=== PATIENT | female | born 2000 | race Caucasian/White ===

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

== ENCOUNTER → 2023-10-26 | Outpatient (CLI) | payer MEDICAID, SELFPAY ==
[2023-10-26 16:12] LABS: Rheumatoid Factor < 10.0 IU/mL (<15)
[2023-10-28 13:08] LABS: CCP IgG Antibodies 34 units (0-19)
[2023-10-30 10:41] LABS: ANTINUCLEAR ANTIBODIES DIRECT Negative (Negative); Anti-Jo <0.2 AI (0.0-0.9); SJOGREN'S Anti-SS-A test < 0.2 AI (0.0-0.9); SJOGREN'S Anti-SS-B test < 0.2 AI (0.0-0.9); Smith Ab <0.2 AI (0.0-0.9)
== END | disposition home or self-care (01) ==
LOC: MFPLAB 12:03
PROVIDERS: PCP Family Medicine; Visit Provider Family Medicine
DX: Z87.39 Personal history of other diseases of the musculoskeletal system and connective tissue (principal)
CPT/HCPCS: 36415; 86038; 86200; 86235; 86431

== ENCOUNTER 2024-02-07 11:12 | Inpatient (IN) | payer MEDICAID, SELFPAY ==
[2024-02-07] VITALS (38 sets, daily range): BP systolic 114–134; BP diastolic 69–85; PULSE 58–89; RESP 16; TEMP 35.7–36.7; O2SAT 98–100; BMI 31.6
[2024-02-07] MEDS: Lactated Ringers 1,000 ML 50 ML IV (11:15)
[2024-02-07] MEDS: Penicillin G Pot 5,000,000 UNITS in 0.9% Normal Saline (100mL MB+) 100 ML 150 UNITS IV (11:30)
[2024-02-07 11:33] LABS: Absolute Lymphocyte Count 2.08 X10^3/uL (0.83-4.51); Absolute Neutrophil Count 13.6 X10^3/uL (2.0-7.7); Basophil# 0.09 X10^3/uL; Basophil% 0.5 % (0-1); Eosinophil# 0.07 X10^3/uL; Eosinophils% 0.4 % (0-5); Hematocrit 41.8 % (37-47); Hemoglobin 14.4 g/dL (12.0-15.0); Lymphocyte # 2.08 X10^3/ul (0.83-4.51); Lymphocyte % 12.4 % (19-41); Mean Corp Hgb Conc 34.4 g/dL (32-36); Mean Corpuscular Hgb 31.4 pg (27.0-32.0); Mean Corpuscular Volume 91.1 fL (81-99); Monocyte# 0.69 X10^3/uL; Monocyte% 4.1 % (0-10); NRBC Flagged by Analyzer 0 % (0-5); Neutrophil # 13.62 X10^3/uL (2.7-7.7); Neutrophil % 80.9 % (47-70); Platelet Count 221 K/mm3 (150-450); RBC Distribution Width SD 44.7 fl (35.1-43.9); Red Blood Count 4.59 M/mm3 (4.2-5.4); White Blood Count 16.8 K/mm3 (4.4-11.0)
[2024-02-07 12:12] LABS: Syphilis Antibodies Non-reactive
[2024-02-07] MEDS: Oxytocin 10 UNITS/ML Vial IM (13:02)
[2024-02-07] MEDS: Lidocaine 1% (20 ml mdv) 20 ML Vial INFILT (13:05)
[2024-02-07] MEDS: Oxytocin 15 Units/NS 250ml 15 UNITS/250 ML IV.SOLN 83 UNITS IV (13:05)
--- NOTE | 2024-02-07 13:17 | HP.PCM.OB_ITS ---
HPI - General General Date of Admission: 02/07/24 Date of Service: 02/07/24 Chief Complaint: contractions HPI Narrative ROSE MARY DALTON, is a 24 F who presents c/o contractions increasing in intensity since about 7 am. complicated to date by +GBS statbus, h/o cannabis use during the . Maternal Data Information Final JUAN: 02/15/24 Gestational age: 38 6/7 [facility] Medical History (Updated 02/07/24 @ 13:[address] Isabel Moran MD) Arthralgia Tetrahydrocannabinol (THC) use disorder, mild, abuse Family history of malignant hyperthermia Home Medications ?Medication ?Instructions ?Recorded ?Last Taken ?Type aspirin 81 mg tablet,delayed 81 mg PO DAILY 02/07/24 02/06/24 22:00 History release vit no.95-ferrous 1 tab PO DAILY 02/07/24 02/06/24 23:11 History fumarate 28 mg-folic acid 800 mcg tablet () Allergy/AdvReac Type Severity Reaction Status Date / Time No Known Allergies Allergy Verified 02/07/24 11:09 Social History Smoking Status: Former smoker History Elective abortions Hx Para 0 Spontaneous abortions Hx # Term Pregnancies Ectopic pregnancies Hx # Pregnancies Multiple births # of living children ROS Constitutional Constitutional: Denies fatigue, fever(s) or malaise Eyes Eyes: Denies change in vision ENT HEENT: Denies dizziness or headache(s) Cardiovascular Cardiovascular: Denies chest pain, dyspnea or lightheadedness Respiratory/Chest Respiratory/Chest: Denies cough or dyspnea Gastrointestinal Gastrointestinal: Denies change in bowel habits Genitourinary Genitourinary: Denies burning urination or genital lesions Integumentary Integumentary: Denies rash Neurologic Neurologic: Denies confusion, dizziness, headache(s), numbness or weakness Vital Signs Vital Signs Vital Signs: 02/07/24 11:35 02/07/24 11:35 02/07/24 11:35 Temperature Temperature Source Temporal Pulse Rate 86 Respiratory Rate Blood Pressure 120/70 BP Systolic 120 BP Diastolic 70 Pulse Ox 02/07/24 11:35 02/07/24 11:35 02/07/24 11:35 Temperature 96.3 F L Temperature Source Pulse Rate Respiratory Rate 16 Blood Pressure BP Systolic BP Diastolic Pulse Ox 99 Weight Weight: 83.461 kg Body Mass Index (BMI) 31.6 Physical Exam Const alert and no apparent distress General Appearance: cooperative HEENT normocephalic Resp normal respiratory effort Cardio regular rate GI soft to palpation GI Narrative: gravid, nontender, appropriate for gestational age Extremity no calf tenderness General Extremity: edema Skin no wounds Rashes: No rashes noted Psych activity/motor behavior normal Labs Labs Labs: Blood Type O POSITIVE Antibody Screen NEGATIVE Hct 41.8 % (37-47) Hgb 14.4 g/dL (12.0-15.0) Syphilis Total Ab Non-reactive Assessment & Plan (1) 38 weeks gestation of : PLAN: Spontaneous labor. Expectant management for vaginal delivery. Estimated weight is less than 4500 g. Group B strep prophylaxis initiated. (2) High-risk in third trimester: (3) Spontaneous onset of labor:
--- NOTE | 2024-02-07 13:23 | OB.VAGDELI_ITS ---
Assessment & Plan (1) (spontaneous vaginal delivery): (2) Single live : Maternal Data Information Final JUAN: 02/15/24 Gestational age: 38 6/7 Vaginal Delivery Maternal Presentation Maternal Presentation: Active Labor Vaginal Delivery Information Procedure Performed: Spontaneous Vaginal Delivery Surgeon/Practitioner: Isabel Moran Date of Procedure: 02/07/24 Pre-Procedure Diagnosis: labor Post-Procedure Diagnosis: same Type of anesthesia: Local with 1% Lidocaine (15 cc) Special Medications: none Estimated Blood Loss: 300 Time of Delivery: 13:01 Findings Description of procedure: A vigorous female infant was delivered CHRISTEN over a first-degree perineal laceration. The remainder the was delivered with maternal pushing and gentle traction only in less than 15 seconds. The Pitocin infusion was initiated for active management of the third stage. The cord was clamped and cut after cord pulsations ceased. The infant was attended to by the waiting nursing staff. The placenta was delivered spontaneously and intact. The cervix and vagina were intact. The first-degree vaginal laceration was repaired with 3-0 Vicryl in a running standard fashion and was hemostatic. Sponge and needle counts were correct. A vaginal sweep was completed by me. Presentation: CHRISTEN Amniotic Membrane Rupture Type: Spontaneous Amniotic Fluid Description: Clear Placenta Disposition: [facility] Specimen collected: No Cord Vessel Description: 3 Vessels Cord Entanglement: None A Gender: Female (Yris) (1 minute): 9 (5 minute): 9 Delayed Cord Clamping: Yes State [employer] Director breaker hand: No Post Vaginal Deli Medications given after delivery: IV Pitocin and IM Pitocin Episiotomy Description: None Laceration: 1st degree Complication Complications: No
[2024-02-07] MEDS: Acetaminophen 500 MG Tablet 1000 MG PO (22:07)
[2024-02-08] VITALS: BP 131/85; PULSE 74; RESP 16; TEMP 36.3; O2SAT 98
[2024-02-08 05:35] VITALS: BP 121/79; PULSE 80; RESP 16; TEMP 36.1; O2SAT 97
[2024-02-08 08:47] VITALS: BP 112/96; PULSE 74; RESP 16; TEMP 36.7
--- NOTE | 2024-02-08 08:56 | PCM.PN.BLA ---
Progress Note Pain well controlled, average lochia, no n/V. Urinating without difficulty Physical Exam Const alert and no apparent distress Narrative: Fundus firm, below umbilicus. Assessment & Plan Assessment/Plan (1) (spontaneous vaginal delivery): PLAN: Plan PPD#1 doing well d/c home tomorrow if ok w/ peds, did not get 4 hrs GBS prophylaxis
--- NOTE | 2024-02-08 10:42 | CASEMGMT ---
Social Work Assessment Labor and Delivery Unit Patient Address: [facility] [address] [place] [address] Phone number: [phone] Date of Referral: 02/07/24 Time of Referral:? 1126 Referred By: Digna Cr Date of Intervention: ??02/08/24 Time of Intervention:? 50 Reason for Referral:? substance abuse Sw completed chart review and acknowledges social work consult due to maternal substance use during . Sw presented to bedside and introduced self to mother of baby, NIKI Lozano. Sw observes that father of baby, ADINA Torres is also present but is asleep on couch. Sw completed assessment with WOODY. History obtained from: medical records and mother of baby (WOODY)??? Household composition: WOODY states that the address listed in chart is her mother's home, but when she leaves from hospital she will be staying with FOB at [facility] [address], [facility]. WOODY states that at that address it is just herself and FOB that live there, along with baby when ready for discharge. Patient's parent/guardian status:? ?WOODY states that she and FOB [facility]. They were together from 2014- 2019, and then were for 1.5 years. Then got back together in 2020 and have been together ever since. WOODY denies domestic violence or intimate partner violence. This is first baby for both parents. Medical History: ?WOODY is 24 year old female who is 1, para 0- now 1 following labor and delivery of . WOODY received routine care during with [facility]. WOODY presented to hospital in active labor and delivered baby via vaginal delivery at 38 weeks gestation on 02/07/24. Baby girl, named Radu, was born weighing 7lb 4oz with apgars of 9 and 9 at one and five minutes of life,respectfully. WOODY is working on breast feeding and states that baby will be followed by Dr. Worthy. Educational Status:? Both parents graduated from high school. No concerns with reading, learning or comprehension. Financial Status: NAHED is employed outside the home at [employer]. WOODY was previously working at [employer], but is currently employed. Infant Supplies: WOODY states that she has obtained all necessary baby supplies, including: car seat, safe sleep space, clothes, diapers and wipes. Childcare/Caregiver(s):? MOB will be the primary caregiver to baby Transportation:?? Both parents have their drivers license and reliable means of transportation. No barriers. Programs/Agencies Involved: ???MOB states that she is connected to insurance through [employer]. MOB denies having WIC or SNAP. MOB states that she is financially taken care of and financially prepared to care for baby. Children Services/Legal Issues:??? No history of children services involvement. Sw explained need to make referral to [facility] due to maternal substance use of THC during . MOB expressed understanding. - Sw called [facility] and spoke to hotline screener: Behavioral Health Issues: ??Mental Health History:??MOB states that NAHED does not have any mental health diagnoses or history. MOB states that during she noticed that she was struggling with her mental health, primarily with feeling anger and saying things too quickly without thinking about what she is saying. MOB reports that she met with her primary care doctor, Dr. Whelan to discuss her mental health concerns. MOB states that she thought that she was Bipolar, however Dr. Whelan states that she does not meet criteria for Bipolar disorder. MOB states that Dr. Whelan referred her for outpatient psychiatric services at [place]. MOB states that she was waiting until she was not any more. ? Substance Use History:?MOB states that she has smoked marijuana daily prior to being . MOB states that during she would smoke a couple of times a week, with the last time being a couple of weeks ago. ? Family History:?MOB states that NAHED also smokes marijuana. MOB states that NAHED parents would also smoke marijuana, but both are passed at this time. Bora explained to MOB the importance of being mindful of genetic disposition and to use healthy coping skills instead of seeking comfort from drugs or alcohol. MOB expressed understanding. ? Drug Screens: Maternal drug screen not seen in chart review. [place] urine screen at time of delivery was positive for THC. Family/Social Stressors:? MOB denies any issues, concerns or stressors. Support Systems: MOB identifies that NAHED, her mom and paternal aunt are her biggest supports at this time. MOB states that if she were to struggle with her mental health during this period FOB would be able to recognize that. Depression/Shaken Baby/Safe Sleeping: Sw educated MOB on signs and symptoms of baby blues and mood and anxiety disorders. Sw explained importance of using healthy coping skills opposed to letting herself get angry. Sw emphasized red flags for MOB to be mindful of during this period. Sw encouraged MOB to call and get connected to mental health services and supports at [place]. MOB states that she has intentions of doing so. Sw educated MOB on shaken baby prevention and ABCs of safe sleep. MOB expressed understanding. ASSESSMENT:? MOB and baby admitted following labor and delivery. MOB first time mom and reports to having all necessary baby items and natural supports in place. MOB with unconfirmed mental health diagnoses. MOB self reports having problems with anger and increased rage during . MOB planning on getting connected to a psychiatrist now that she is no longer . MOB states that historically she would self medicate with marijuana, but has cut back during . MOB aware of referral being made to children services due to substance use during and baby testing positive for THC. While completing assessment with MOB, FOB observed to be asleep on couch, but then he started vaping while sw still in room. Sw and MOB informed FOB that he cannot vape while in the hospital. Sw also explained to MOB that THC will stay in her system for longer periods of time and will transfer to baby, which could impact development and weight gain. MOB was attentive to baby and appeared to care for her in loving way. Safe Plan of Care for related to substance use:? MOB states that now that baby is born and she is breast feeding she does not have intentions of smoking THC and will get apt with psychiatrist scheduled. - Hotline screener reports that she is not sure if referral will be screened in at this time, and if it is she is not sure if a worker will present to bedside to meet with parents or if they will follow up with them at home once discharged on 02/08. PLAN:?? No other services requested or indicated. MOB and baby to be discharged when medically ready. Parents were provided literature regarding: signs and symptoms of baby blues and mood and anxiety disorders, Help Me Grow, shaken baby prevention, ABCs of safe sleep and a list of county resources that are available for them should any needs present themselves. Sanjuana Casillas, SOCIAL WELFARE RESEARCH WORKER, SENIOR TALENT ACQUISITION SPECIALIST
[2024-02-08 11:55] VITALS: RESP 16; TEMP 36.7
[2024-02-08] MEDS: Benzocaine/Lanolin/Aloe Vera 85 GM Spray 1 SPRAY TOPICAL (15:01)
[2024-02-08] MEDS: Ibuprofen 600 MG Tablet PO (15:01)
[2024-02-08 16:20] VITALS: BP 118/85; PULSE 77; RESP 15; TEMP 36.8
[2024-02-08 20:00] VITALS: BP 108/73; PULSE 77; RESP 16; TEMP 36.7; O2SAT 98
[2024-02-09 01:54] VITALS: BP 106/85; PULSE 70; RESP 16; TEMP 36.8; O2SAT 96
--- NOTE | 2024-02-09 07:54 | DS.PCM_ITS ---
Providers Date of Admission: 02/07/24 Primary Care Physician: Ed Whelan MD Reason For Visit: LABOR/VAGINAL DELIVERY Diagnosis Discharge Diagnosis (1) (spontaneous vaginal delivery): Status: Acute Code(s): O80 - Encounter for full-term uncomplicated delivery (2) Single live : Status: Acute Code(s): Z37.0 - Single live (3) Laceration, obstetrical, first degree: Status: Acute Code(s): O70.0 - First degree perineal laceration during delivery Medications at Discharge Home Medications vit no.95-ferrous fumarate 28 mg-folic acid 800 mcg tablet () 1 tab PO DAILY 02/07/24 acetaminophen 500 mg tablet 1,000 mg (2 x 500 mg) PO Q6H PRN PRN Pain 1-10 Or Fever #0 tabs 02/09/24 ibuprofen 600 mg tablet 600 mg PO Q6H PRN PRN Pain Score 1-10 #0 tabs 02/09/24 Hospital Course Operations None Procedures None Summary of Care Provided Minutes Spent on Discharge: 15 Hospital Course: Patient had vaginal delivery. Hospital course was uneventful. Physical Exam Narrative Patient seen at bedside. Denies pain. Ambulating and voiding without difficulty. Lochia decreased. Desires discharge home today. Const alert and oriented x3 General Appearance: Negative for in distress HEENT normocephalic Eyes General Eye: normal appearance of both eyes Neck General: normal visual inspection Chest Chest: symmetrical chest wall rise Resp normal respiratory effort and normal air movement Effort and Inspection: symmetric chest movement; Negative for tachypneic Auscultation: clear to auscultation bilaterally Cardio regular rate and regular rhythm Peripheral Pulses: pulses 2+ throughout GI normal to inspection, nondistended, normoactive bowel sounds Narrative: Ice to perineum OB / External & Speculum: vaginal bleeding and other Lochia decreasing Uterus Palpation: uterus fundus firm (Below U) Extremity normal to inspection, full ROM and normal capillary refill Skin no rashes or lesions noted Neuro oriented x3, CN's II-XII intact bilaterally and gait normal Psych mental status grossly normal, thought process normal and activity/motor behavior normal Weight / BMI Weight Weight: 184 lb Body Mass Index (BMI) 31.6 ABG / Lab / Microbiology Data 02/07/24 11:15 D/C Instructions Discharge Diet: No restrictions Discharge Activity: Return to Normal Activity, No Restrictions, May Drive, May Shower and May Take a Tub Bath (Warm water only. No bath salts, soaps, bubbles) May resume sexual activity in: 6-8 weeks Weight Bearing Status: Weight bearing as tolerated Call your doctor if you observe: Fever of 101 or Higher, Inability to urinate, Using more than 1 pad per hour, Shortness of breath, Dizziness, Chest pain, Calf discomfort and Uncontrolled pain DC O2, CPAP, BIPAP Needs Additional Home O2 Discharge instructions: No DC home with Oxygen: No Please Follow Up With: [facility] COSBY When: 2 weeks in office or virtual Meaningful Use Info Meaningful Use Meaningful Use Diagnoses (Choose all that apply): None applicable Ischemic Stroke Statin Dosing Therapy Reference: STATIN DOSE THERAPY REFERENCE: * Patients > 75 years receive moderate or high dose statin therapy. * Patients 75 years or YOUNGER should receive HIGH intensity statin dose unless contraindicated. You will be required to document reason for non-treatment if statin daily dose does not meet guidelines. HIGH DOSE STATIN THERAPY DAILY Atorvastatin > than or = to 40 mg Rosuvastatin > than or = to 20 mg Amlodipine + Atorvastatin > than or = to 2.5/40 mg Ezetimibe + Simvastatin 10/80 mg Simvastatin 80mg Discharge Plan Admission Admit Date/Time: 02/07/24 11:12 Primary Reason for Your Visit: Labor and Delivery Attending Provider: Isabel Moran Primary Care Provider: Ed Whelan Consulting Providers: Digna Cr Discharge Orders/Prescriptions Prescriptions: New acetaminophen 500 mg Tablet 1,000 mg PO Q6H PRN PRN (Reason: Pain 1-10 Or Fever) Qty: 0 0RF ibuprofen 600 mg Tablet 600 mg PO Q6H PRN PRN (Reason: Pain Score 1-10) Qty: 0 0RF Discontinued aspirin 81 mg tablet,delayed release (DR/EC) 81 mg PO DAILY No Action PNV cmb#95-ferrous fumarate-FA [] 28 mg iron- 800 mcg tablet 1 tab PO DAILY Referrals / Follow Up: Ed Whelan MD [Primary Care Provider] - Disposition Disposition (needs filled in before D/C Order can be placed): Home, Self Care
[2024-02-09 08:15] VITALS: BP 111/81; PULSE 76; RESP 16; TEMP 36.5
--- NOTE | 2024-02-14 11:37 | NURSING ---
Follow up phone call made. Patient states she is doing great, denies any pain or discomfort. Patient states is going well, nursing every 3 hours with nipple shield, has follow up visit scheduled for February 19 with [facility]. Denies any questions or concerns at this time.
== END 2024-02-09 10:30 | disposition home or self-care (01) | DRG 560 ==
LOC: WPOUT 11:20 → WP 11:20
PROVIDERS: Obstetrics & Gynecology; Admitting Provider Obstetrics & Gynecology; PCP Family Medicine; Referring Provider Obstetrics & Gynecology; Visit Provider Obstetrics & Gynecology
DX: O42.92 Full-term premature rupture of membranes, unspecified as to length of time between rupture and onset of labor (principal); Z37.0 Single live birth; F12.10 Cannabis abuse, uncomplicated; O99.324 Drug use complicating childbirth; O70.0 First degree perineal laceration during delivery; Z3A.38 38 weeks gestation of pregnancy; Z87.891 Personal history of nicotine dependence
CPT/HCPCS: 59025; 59050; 85025; 86780; 86850; 86900; 86901; 99221; J7120; G0378

== ENCOUNTER → 2024-03-16 | Outpatient (CLI) | payer MEDICAID, SELFPAY | END | disposition home or self-care (01) | LOC: MFPLAB 16:49 | PROVIDERS: PCP Family Medicine; Referring Provider Family Medicine; Visit Provider Family Medicine | DX: F12.10 Cannabis abuse, uncomplicated (principal) | CPT/HCPCS: 36415 ==